=== PATIENT | male | born 1985 | race Caucasian/White ===

== ENCOUNTER 2017-06-04 18:43 | Emergency (ER) | payer OTHER ==
[~2017-06-04] VITALS: Ht 170.2 cm; Wt 155.0 kg
[2017-06-04 19:33] LABS: HEMATOCRIT 40.9 % (38.0-50.0); HEMOGLOBIN 13.1 G/DL (12.5-16.6); MCH 28.6 PG (29.0-34.0); MCV 89.3 FL (86-99); PLATELET COUNT 315 K/uL (156-360); RBC DIS.WIDTH-CV 12.1 % (11.8-14.6); RBC DIS.WIDTH-SD 39.5 % (39-53); RED BLOOD COUNT 4.58 M/uL (4.00-5.50); WHITE BLOOD COUNT 9.2 K/uL (4.1-10.2)
[2017-06-04 19:44] LABS: CHLORIDE 107 mEq/L (99-109); POTASSIUM 3.3 mEq/L (3.7-5.4); SODIUM 141 mEq/L (136-147)
[2017-06-04 19:45] LABS: GLUCOSE 92 mg/dL (70-99)
[2017-06-04 19:49] LABS: CREATININE 0.9 mg/dL (0.6-1.3)
[2017-06-04 19:50] LABS: UREA NITROGEN (BUN) 8 mg/dL (9-23)
[2017-06-04 19:51] LABS: GFR ESTIMATE (CALCULATED) > 59 mL/min/ (58.99-99999)
[2017-06-04 19:54] LABS: TROP-I INTERPRETATION NEGATIVE; TROPONIN-I 0.03 ng/mL (0.0-0.30)
[2017-06-04] MEDS ORDERED: ZANTAC150 MG PO (20:09)
[2017-06-04 21:10] VITALS: BP 175/95
== END 2017-06-04 21:10 | disposition home or self-care (01) ==
LOC: EME 18:43
DX: K22.4 Dyskinesia of esophagus (principal); Z86.718 Personal history of other venous thrombosis and embolism; Z79.01 Long term (current) use of anticoagulants
CPT/HCPCS: 71046; 80048; 84484; 85027; 93005; 99281; 99283

== ENCOUNTER 2017-08-17 07:40 | Emergency (ER) | payer OTHER ==
[~2017-08-17] VITALS: Ht 170.2 cm; Wt 151.0 kg
[~2017-08-17 07:40] MED LIST: ZANTAC150 MG PO
[2017-08-17] MEDS ORDERED: TOBREX5 ML RIGHT EYE (10:28)
[2017-08-17 10:59] VITALS: BP 132/86
== END 2017-08-17 11:00 | disposition home or self-care (01) ==
LOC: EME 07:40
DX: H10.9 Unspecified conjunctivitis (principal); I10 Essential (primary) hypertension; Z86.711 Personal history of pulmonary embolism
CPT/HCPCS: 99281; 99284

== ENCOUNTER 2017-11-28 01:20 | Emergency (ER) | payer OTHER ==
[~2017-11-28] VITALS: Ht 170.2 cm; Wt 149.0 kg
[~2017-11-28 01:20] MED LIST changes: +TOBREX5 ML RIGHT EYE
[2017-11-28 01:43] LABS: HEMATOCRIT 40.5 % (38.0-50.0); HEMOGLOBIN 12.9 G/DL (12.5-16.6); MCHC 31.9 G/DL (30.0-36.0); PLATELET COUNT 326 K/uL (156-360); RBC DIS.WIDTH-CV 12.3 % (11.8-14.6); RBC DIS.WIDTH-SD 41.1 % (39-53); RED BLOOD COUNT 4.45 M/uL (4.00-5.50); WHITE BLOOD COUNT 7.7 K/uL (4.1-10.2)
[2017-11-28 01:46] LABS: APPEARANCE CLEAR ((CLEAR)); BILIRUBIN NEGATIVE; BLOOD SMALL; COLOR YELLOW ((YELLOW)); GLUCOSE (STRIP) NEGATIVE; KETONES NEGATIVE; LEUKOCYTES NEGATIVE; NITRITE NEGATIVE; PROTEIN (STRIP) NEGATIVE
[2017-11-28 01:52] LABS: ALBUMIN 3.7 g/dL (3.2-4.8); CHLORIDE 106 mEq/L (99-109); POTASSIUM 3.4 mEq/L (3.7-5.4); SODIUM 141 mEq/L (136-147)
[2017-11-28 01:53] LABS: BACTERIA NONE SEEN /HPF; EPITHELIAL CELLS RARE /HPF; MUCUS 1+ /LPF; UCUL ADDED? YES
[2017-11-28 01:54] LABS: GLUCOSE 120 mg/dL (70-99); TOTAL PROTEIN 7.3 g/dL (6.4-8.3)
[2017-11-28 01:56] LABS: TOTAL BILIRUBIN 0.9 mg/dL (0.0-1.0)
[2017-11-28 01:58] LABS: ALKALINE PHOSPHATASE 84 IU/L (3-129); GFR ESTIMATE (CALCULATED) > 59 mL/min/ (58.99-99999)
[2017-11-28 01:59] LABS: AST (GOT) 18 IU/L (2-34); UREA NITROGEN (BUN) 8 mg/dL (9-23)
[2017-11-28 02:01] LABS: ALT (GPT) 19 IU/L (3-49); LIPASE 15 U/L (1.0-51.0)
[2017-11-28] MEDS ORDERED: CIPRO500 MG PO (03:54)
[2017-11-28] MEDS ORDERED: BACTRIM,SEPT1 TABLET PO (03:56)
[2017-11-28 04:20] VITALS: BP 155/98
== END 2017-11-28 04:21 | disposition home or self-care (01) ==
LOC: EME 01:20
DX: R30.0 Dysuria (principal); Z87.440 Personal history of urinary (tract) infections; I10 Essential (primary) hypertension; Z86.711 Personal history of pulmonary embolism; Z79.01 Long term (current) use of anticoagulants
CPT/HCPCS: 80053; 81003; 83690; 85027; 87086; 99281; 99284

== ENCOUNTER 2017-12-04 06:37 | Emergency (ER) | payer OTHER ==
[~2017-12-04] VITALS: Ht 170.2 cm; Wt 146.1 kg
[~2017-12-04 06:37] MED LIST changes: +BACTRIM,SEPT1 TABLET PO; +CIPRO500 MG PO
[2017-12-04] MEDS ORDERED: PREDNISONE50 MG PO (07:11)
[2017-12-04] MEDS ORDERED: LISINOPRIL20 MG PO (07:59)
[2017-12-04] MEDS ORDERED: XARELTO10 MG PO (08:00)
[2017-12-04 08:01] VITALS: BP 131/75
== END 2017-12-04 08:03 | disposition home or self-care (01) ==
LOC: EME 06:37
DX: R21 Rash and other nonspecific skin eruption (principal); T37.0X5A Adverse effect of sulfonamides, initial encounter; R50.9 Fever, unspecified; J02.9 Acute pharyngitis, unspecified; R10.9 Unspecified abdominal pain; I10 Essential (primary) hypertension; Z86.711 Personal history of pulmonary embolism; Z79.01 Long term (current) use of anticoagulants; Z87.440 Personal history of urinary (tract) infections
CPT/HCPCS: 81003; 99281; 99284; J7512